=== PATIENT | male | born 1980 | race Caucasian/White ===

== ENCOUNTER 2023-05-15 12:08 | Emergency (ER) | payer MEDICARE, MEDICAID, SELFPAY ==
[2023-05-15 12:10] VITALS: PULSE 64; RESP 22; TEMP 36.9; O2SAT 100; BMI 40.0
[2023-05-15 12:16] VITALS: BP 153/86; PULSE 65; RESP 23; O2SAT 98
--- NOTE | 2023-05-15 12:24 | ED.VIS.CHEST ---
HPI History of Present Illness Chief Complaint: Chest Pain [facility] Medical History (Updated 05/15/23 @ 12:17 by Adrianna Choi) Acid reflux Heart attack Stroke Allergy/AdvReac Type Severity Reaction Status Date / Time haloperidol [From Haldol] Allergy UNKNOWN Verified 05/15/23 12:45 Social History Smoking Status: Current every day smoker tobacco type: cigarettes EXAM Physical Exam Const Vital Signs: 05/15/23 12:10 05/15/23 12:16 05/15/23 12:16 Temperature 98.4 F Temperature Source Oral Pulse Rate 64 65 Respiratory Rate 22 H 23 H Respiratory Effort Short of Breath Blood Pressure 153/86 H Blood Pressure Mean 108 Pulse Ox 100 98 Oxygen Delivery Method Room Air 05/15/23 13:06 Temperature Temperature Source Pulse Rate Respiratory Rate Respiratory Effort Blood Pressure Blood Pressure Mean Pulse Ox 98 Oxygen Delivery Method Room Air Heart Score History: Slightly/Non-Suspicious ECG: Normal Age: </= 45 years Risk Factors: >/= 3 Risk Factors or History of CAD Troponin: </= Normal Limit Score: 2 MDM MDM MDM Narrative Medical decision making narrative: HISTORY OF PRESENT ILLNESS: 42-year-old male here with concern for stabbing chest pain started 2 hours ago. The patient further states The patient denies recent surgery in the last 4 weeks or immobilization in the last 3 days, denies previous diagnosis of DVT or PE, hemoptysis, unilateral leg swelling or malignancy with treatment the last 6 months or palliative. No estrogen use noted. Patient denies sudden onset of pain, no tearing sensation, no migratory symptoms, no new numbness, weakness or loss of sensation. Patient denies family history or personal history of Connective tissue disorders (Marfan's Syndrome, Lise Danlos etc) REVIEW OF SYSTEMS: Pertinent positives: Chest pain Pertinent negatives: PHYSICAL EXAM: Nursing triage notes reviewed, Vital signs reviewed Constitutional: please see mdm HENT: MMM Eyes: Pupils equal round and reactive to light, Extraocular muscles intact Neck: No stridor, no JVD, full neck ROM Lungs: Clear to auscultation, No wheezing or rales. No increased work of breathing, no conversational dyspnea, no accessory muscle use, no nasal flaring. No respiratory distress noted Heart: Regular rate and rhythm, No murmurs, No rubs and No gallops, 2+ distal pulses (radial, femoral, posterior tibial) in all extremities Abdomen: Soft, there is no tenderness, rigidity, rebound or guarding, no obvious peritoneal signs, no palpable pulsatile abdominal masses, no auscultated abdominal bruit : No CVAT Extremities: No edema Neuro: No focal neurological deficits, cranial nerves II through XII intact, 5/5 strength in all extremities. Intact sensation to light touch in all extremities, 2+ reflexes bilateral patella tendons. Normal gait. No ataxia. Skin: No rash or lesions noted MEDICAL DECISION MAKING: Chief Complaint: Chest pain External records reviewed: No recent cardiac catheterization stress test or echocardiograms noted in the chart Factors affecting care: CAD, CVA, hyperlipidemia, hypertension, family history of [place] Social determinants of health: Current everyday smoker History obtained from others: none Consults: none MDM Narrative: The patient was hemodynamically stable, afebrile, nontoxic-appearing. Exam without focal cardiopulmonary abnormalities. No pulse deficits or unilateral leg swelling. I considered the following differential diagnosis: ACS, anemia, pneumonia, electrolyte disturbance, PE, dissection I considered pulm embolism however the patient lower as well score and as such have a low space for PE. I also consider aortic dissection patient no pulse deficits, no history of connective tissue diseases, pain is not ripping or tearing any head no focal neurologic deficits to suggest aortic dissection. There is no indication for advanced imaging such as CT scan of the chest at this time. I obtained a broad lab and imaging work-up to further elucidate etiology patient complaints. ALL IMAGES (IF OBTAINED) HAVE BEEN PERSONALLY REVIEWED AND INTERPRETED BY MYSELF. EKG with normal sinus rhythm, normal axis, no intervals, no STEMI High-sensitivity troponin is negative, no evidence of myocardial ischemia x2 CBC without leukocytosis, severe anemia, no thrombocytopenia. BMP without evidence of significant electrolyte abnormalities, no anion gap, no acute kidney injury. I have personally reviewed the patient's chest x-ray. Chest x-ray is unremarkable for pulmonary edema, pneumothorax, pneumonia or focal cardiopulmonary abnormality. The synthesis of the patient's history, physical exam, labs and images were not consistent with acute life-threatening etiology. No signs of PE, dissection, ACS, severe anemia pneumonia or electrolyte disturbance. I completed a HEART Score to screen for Major Adverse Cardiac Event (MACE) in this patient. The evidence indicates that the patient is very low risk for MACE and this is consistent with my clinical intuition. The risk of further workup or hospitalization for MACE is likely higher than the risk of the patient having a MACE. It is, therefore, in the patient?s best interest not to do additional emergent testing or to be hospitalized for MACE at this time. Shared Decision-Making No hospitalization indicated I have discussed with the patient my clinical impression and the result of the HEART Score to screen for MACE, as well as the risks of further testing and hospitalization. The HEART Score shows that the risk for MACE is less than 1%. Although the risk of MACE has not been completely eliminated, the risks of further testing or hospitalization for MACE likely exceed any potential benefit, and the patient agrees with not pursuing further emergent evaluation or hospitalization for MACE at this time. The patient and/or family, caregivers express understanding. The patient and/or family, caregivers agrees with the plan. Shared decision making: I will have a discussion with the patient and or visitors regarding risk/benefits of further testing or admission. They will be made aware of of the risk/benefits inherent in this decision they will be given the opportunity to voice understanding. Total critical care time today provided was at least 0 [] minutes. This excludes separately billable procedures. Critical care time (if documented) is secondary to the patient having high probability of clinically significant/life threatening deterioration in the patient's condition which required my urgent intervention. Impression: 1. Chest pain 2. History of CAD 3. History of hyperlipidemia Dispo: Discharge Lab Data Labs: Laboratory Results - last 24 hr 05/15/23 05/15/23 12:19 14:23 WBC 7.4 RBC 5.29 Hgb 16.3 Hct 48.7 MCV 92.1 MCH 30.8 MCHC 33.5 RDW Std Deviation 42.0 RDW Coeff of Richard 12.5 Plt Count 282 MPV 10.4 Immature Gran % (Auto) 0.400 Neut % (Auto) 51.4 Lymph % (Auto) 31.4 Swain % (Auto) 11.9 H Eos % (Auto) 4.0 Baso % (Auto) 0.9 Absolute Neuts (auto) 3.8 Absolute Lymphs (auto) 2.33 Nucleated RBC % 0 Sodium 137 Potassium 3.9 Chloride 105 Carbon Dioxide 26.0 Anion Gap 6 BUN 12 Creatinine 1.15 Estim Creat Clear Calc 72.05 Est GFR (MDRD) Af Amer 89 Est GFR (MDRD) Non-Af 73 BUN/Creatinine Ratio 10.4 Glucose 104 Calcium 9.0 Troponin I High Sens 8 9 Radiography Diagnostic Testing: Clinical Impression(s) from Imaging Studies Chest X-Ray 05/15/23 13:06 IMPRESSION: No radiographic evidence of acute cardiopulmonary disease. Electronically Signed: Orestes Toribio MD at 13:19 EDT , Discharge Plan Triage Chief Complaint: Chest Pain ED Provider: Ovidio Garcia Dx/Rx/DC Orders Primary Care Provider: Care Physician,No Primary Referrals: Care Physician,No Primary [Primary Care Provider] -
--- NOTE | 2023-05-15 12:26 | EKG12_ITS ---
Test Reason : CP Blood Pressure : / mmHG Vent. Rate : 063 BPM Atrial Rate : 063 BPM P-R Int : 178 ms QRS Dur : 088 ms QT Int : 394 ms P-R-T Axes : 036 026 025 degrees QTc Int : 403 ms Normal sinus rhythm Normal ECG Confirmed by BRANDYN SRIVASTAVA, JHON ([id number]), communications editor CALISTA HICKMAN ([id number]) on 05/17/2023 7:09:26 AM Referred By: OZZIE Confirmed By:GUY AHUMADA MD
[2023-05-15 12:57] LABS: Absolute Lymphocyte Count 2.33 X10^3/uL (0.83-4.51); Absolute Neutrophil Count 3.8 X10^3/uL (2.0-7.7); Basophil# 0.07 X10^3/uL; Basophil% 0.9 % (0-1); Hematocrit 48.7 % (40-54); Hemoglobin 16.3 g/dL (13.0-16.5); Lymphocyte # 2.33 X10^3/ul (0.83-4.51); Lymphocyte % 31.4 % (19-41); Mean Corp Hgb Conc 33.5 g/dL (32-36); Mean Corpuscular Hgb 30.8 pg (27.0-32.0); Mean Corpuscular Volume 92.1 fL (80-94); Mean Platelet Vol. 10.4 fl (6.2-12.0); Monocyte# 0.88 X10^3/uL; Monocyte% 11.9 % (0-10); NRBC Flagged by Analyzer 0 % (0-5); Neutrophil % 51.4 % (47-70); Platelet Count 282 K/mm3 (150-450); RBC Distribution Width CV 12.5 % (11.6-14.6); Red Blood Count 5.29 M/mm3 (4.6-6.2); White Blood Count 7.4 K/mm3 (4.4-11.0)
[2023-05-15 13:00] VITALS: BP 145/53; PULSE 65; RESP 19
[2023-05-15 13:06] VITALS: O2SAT 98
[2023-05-15 13:06] LABS: Anion Gap 6 (5-15); BUN 12 mg/dL (7-18); BUN/Creat Ratio 10.4 RATIO (10-20); Chloride 105 mmol/L (98-107); Creatinine, Serum 1.15 mg/dL (0.70-1.30); EST Glomerular Filtration Rate 73 mL/min (>60); Est Glom Filt Rate - Afr Amer 89 mL/min (>60); Estimated Creatinine Clearance 72.05 ml/min; Glucose 104 mg/dL (74-106); Potassium 3.9 mmol/L (3.5-5.1); Sodium Level 137 mmol/L (136-145); Troponin-I HS (w/2H Reflex) 8 pg/mL (3.0-78.0)
--- NOTE | 2023-05-15 13:06 | RAD_ITS ---
EXAM: XR CHEST, 1 VIEW CLINICAL INDICATION: chest pain TECHNIQUE: Frontal view of the chest. COMPARISON: No relevant prior studies available. FINDINGS: LUNGS AND PLEURAL SPACES: Unremarkable. No consolidation or edema. No pneumothorax. No effusion. HEART: Unremarkable. Cardiac silhouette not enlarged. MEDIASTINUM: Central airways and mediastinal contour are unremarkable. BONES/JOINTS: Unremarkable. SOFT TISSUES: Unremarkable. RAD/Chest 1 View (Portable) IMPRESSION: No radiographic evidence of acute cardiopulmonary disease. Electronically Signed: Orestes Toribio MD at 13:19 EDT ,
--- NOTE | 2023-05-15 13:22 | NURSING ---
NO OLD EKGS
[2023-05-15 14:00] VITALS: PULSE 84; RESP 22
[2023-05-15] MEDS: Aspirin 325 MG Tablet PO (14:00)
[2023-05-15 14:44] LABS: Reflex Troponin-HS? (from REC) Y
[2023-05-15 15:01] LABS: Troponin-I HS 9 pg/mL (3.0-78.0)
== END 2023-05-15 15:32 | disposition home or self-care (01) ==
PROVIDERS: Emergency Provider Emergency Medicine; Visit Provider Emergency Medicine
DX: R07.9 Chest pain, unspecified (principal); I10 Essential (primary) hypertension; E78.5 Hyperlipidemia, unspecified; F17.210 Nicotine dependence, cigarettes, uncomplicated; I25.10 Atherosclerotic heart disease of native coronary artery without angina pectoris
CPT/HCPCS: 71045; 80048; 84484; 85025; 93005; 99284; A4216